=== PATIENT | female | born 1980 | race African-American/Black ===

== ENCOUNTER 2022-12-31 08:38 | Emergency (ER) | payer BC ==
[~2022-12-31] VITALS: Ht 154.9 cm; Wt 77.1 kg
[2022-12-31 09:18] LABS: HEMATOCRIT 35.8 % (36-48); MEAN CORPUSCULAR HEMOGLOBIN 28.5 pg (27.0-33.0); MEAN CORPUSCULAR HGB CONC 33.8 g/dL (32.0-36.0); MEAN CORPUSCULAR VOLUME 84.4 fL (79-99); RED BLOOD CELL COUNT(AUTO) 4.24 MIL/uL (4.00-5.50); RED CELL DISTRIBUTION WIDTH 14.4 % (11.0-15.5); WHITE BLOOD COUNT (AUTO) 6.5 K/uL (4.8-10.8)
[2022-12-31 09:28] LABS: CREATININE 0.9 mg/dL (0.5-1.5); POTASSIUM 3.9 mmol/L (3.5-5.1)
[2022-12-31 09:32] LABS: ALBUMIN 3.8 g/dL (3.5-5.0); TOTAL PROTEIN, SERUM 7.3 g/dL (6.0-8.3)
[2022-12-31] MEDS ORDERED: ACETAMINOPHEN 500 MG TABLET PO ONE (10:00)
[2022-12-31 10:23] LABS: INR 0.93 (0.85-1.15); PROTHROMBIN TIME 10.2 SEC (9.6-11.6)
[2022-12-31 10:25] LABS: PARTIAL THROMBOPLASTIN TIME 25.5 SEC (26.3-35.5)
[2022-12-31] MEDS ORDERED: APIX5TAB PO (10:25)
[2022-12-31] MEDS ORDERED: APIXABAN 5 MG TABLET PO SCH (10:27)
[2022-12-31 11:11] VITALS: BP 126/78
== END 2022-12-31 11:11 | disposition home or self-care (01) ==
LOC: EDH 08:38
DX: I82.432 Acute embolism and thrombosis of left popliteal vein (principal); Z90.49 Acquired absence of other specified parts of digestive tract; Z98.890 Other specified postprocedural states
CPT/HCPCS: 36415; 80053; 85027; 85610; 85730; 93971